=== PATIENT | male | born 1985 | race Hispanic/Latino ===

== ENCOUNTER 2021-08-04 17:38 | Inpatient (IN) | payer OTHER, SELFPAY ==
[2021-08-04] VITALS (12 sets, daily range): BP systolic 91–106; BP diastolic 49–66; PULSE 45–64; RESP 10–24; TEMP 36.3–36.5; O2SAT 96–100; BMI 16.2
[2021-08-04] MEDS: POTASSIUM CHLORIDE 20 MEQ/15 ML UDC 40 MEQ PO (18:19)
[2021-08-04] MEDS: POTASSIUM CHLORIDE IN WATER 10 MEQ/100 ML PIGGYBACK 100 MEQ IV ×2 (18:19→19:31)
[2021-08-04 18:24] LABS: Alanine Aminotransferase 31 IU/L (<50); Albumin 4.6 g/dL (3.5-5.0); Albumin Globulin Ratio 1.5 (1.0-2.8); Alkaline Phosphatase 68 U/L (38-126); Aspartate Aminotransferase 57 IU/L (17-59); BUN Creatinine Ratio 35.4 (6-22); Bilirubin Total 1.2 mg/dL (0.2-1.3); Blood Urea Nitrogen 28 mg/dL (9-20); Calcium 8.9 mg/dL (8.4-10.2); Estimated Glomerular Filt Rate > 60 mL/min (>60); Globulin 3.1 g/dL (1.7-4.1); Glucose 87 mg/dL (70-100); Magnesium 2.3 mg/dL (1.6-2.3); Sodium 129 mmol/L (137-145); Total Protein 7.7 g/dL (6.3-8.2)
[2021-08-04 18:31] LABS: HEMOLYSIS 20 (0-50)
--- NOTE | 2021-08-04 18:43 | ED.RECABL ---
HPI - Recheck/Abnormal Lab/Rx General Chief Complaint: Recheck/Abnormal Lab/Rx Stated Complaint: low potassium, sent PCP Time Seen by Provider: 08/04/21 17:50 Source: patient Mode of arrival: Ambulatory History of Present Illness HPI narrative: 36-year-old male nonsmoker and previously healthy presents at the request of his primary care provider due to critically low potassium that was found to be below 2 on routine blood work. Patient states that he feels completely fine and has no symptoms. He denies dizziness, weakness or lightheadedness. He has no chest pain or shortness of breath. He denies any muscle cramps or excessive fatigue. He denies any prescription medications or dietary change. He takes only multivitamins. He states that he is been told in the past that his potassium was quite low and admits that people seem to get ?excited about his levels on occasion. He has had no nausea or vomiting. He denies diarrhea Related Data Home Medications Medication Instructions Recorded Confirmed No Known Home Medications 08/05/21 08/05/21 Allergies Allergy/AdvReac Type Severity Reaction Status Date / Time No Known Drug Allergies Allergy Verified 08/04/21 17:55 Review of Systems Review of Systems Narrative: GENERAL: Denies chills, fatigue, malaise, fever, sweats. HEENT: Denies sinus pain, ear pain, sore throat, difficulty swallowing, dizziness. RESPIRATORY: Denies dyspnea, cough, wheezing, hemoptysis, sputum. CARDIOVASCULAR: Denies chest pain, palpitations, orthopnea, edema, GASTROINTESTINAL: Denies nausea, vomiting, abdominal pain, diarrhea, constipation, melena. : Denies dysuria, frequency, incontinence, hematuria, urinary retention. MUSCULOSKELETAL: denies weakness, joint pain, or bony pain SKIN: Denies rash, skin lesions, or other NEUROLOGIC: Denies weakness, headache, numbness, change in speech, confusion, seizures, incoordination. PSYCHIATRIC: No concerning psychosocial issues. 12 point review of systems is negative except for those stated above Patient History Surgical History History of inguinal hernia repair, bilateral Family History Father Hypertension Mother Autoimmune disorder Social History household members: none Smoking Status: Never smoker alcohol intake: never Exam Narrative Exam Narrative: GENERAL: [] year old patient appears stated age. Thin, in no obvious distress HEAD: Atraumatic. Normocephalic. EYES: Pupils equal round and reactive. Extraocular motions intact. No scleral icterus. No injection or drainage. ENT: Nose without bleeding, purulent drainage. Throat without erythema, tonsillar hypertrophy or exudate. Airway patent. NECK: Trachea midline. Non tender CARDIOVASCULAR: Regular rate and rhythm without murmurs, gallops, or rubs. RESPIRATORY: Clear to auscultation. Breath sounds equal bilaterally. No wheezes, rales, or rhonchi. GASTROINTESTINAL: Abdomen soft, non-tender, nondistended. EXTREMITIES: No edema or joint tenderness. BACK: Nontender without deformity or crepitance. No flank tenderness. NEURO: AOx3. SKIN: No rash or erythema of visible areas Initial Vital Signs Initial Vital Signs: Vital Signs Temperature 97.7 F 08/04/21 17:50 Pulse Rate 52 L 08/04/21 17:50 Respiratory Rate 18 08/04/21 17:50 Blood Pressure 98/66 08/04/21 17:50 Pulse Oximetry 98 08/04/21 17:50 Course Orders Ordered: Acetaminophen (Acetaminophen 325 Mg Tablet) 650 mg PO Q6HR PRN PRN Reason: Fever/Mild Pain (1-3) Enoxaparin Sodium (Enoxaparin 40 Mg/0.4 Ml Syringe) 40 mg SUBCUT DAILY [facility] Last Admin: 08/05/21 08:47 Dose: 40 mg Documented by: EAN Potassium Chloride/Sodium Chloride (Ns With Kcl 20 Meq) 1,000 mls @ 100 mls/hr IV CONT [facility] Last Admin: 08/05/21 13:00 Dose: 100 mls/hr Documented by: EAN Magnesium Oxide (Magnesium Oxide 400 Mg Tablet) 400 mg PO BID [facility] Last Admin: 08/05/21 13:00 Dose: 400 mg Documented by: EAN Naloxone HCl (Naloxone 0.4 Mg/Ml Vial) 0.2 mg IV Q2MIN PRN PRN Reason: Opiate Reversal Ondansetron HCl (Ondansetron 4 Mg/2 Ml Inj) 4 mg IV Q8HR PRN PRN Reason: Nausea And Vomiting Potassium Chloride (Potassium Chloride 20 Meq Tab) 40 meq PO Q4H [facility] Stop: 08/06/21 00:31 Last Admin: 08/05/21 15:44 Dose: 40 meq Documented by: Admin: 08/05/21 13:00 Dose: 40 meq Documented by: EAN Discontinued Medications POTASSIUM CHLORIDE IN WATER (Potassium Cl 10 Meq/100 Ml Rebecca) 10 meq in 100 mls @ 100 mls/hr IV Q1H [facility] Stop: 08/04/21 22:14 Last Admin: 08/04/21 23:06 Dose: 75 mls/hr Documented by: Infusion: 08/04/21 22:15 Dose: 75 mls/hr Documented by: Infusion: 08/04/21 21:45 Dose: 75 mls/hr Documented by: Admin: 08/04/21 20:55 Dose: 75 mls/hr Documented by: Infusion: 08/04/21 20:54 Dose: 0 mls/hr Documented by: Admin: 08/04/21 19:31 Dose: 100 mls/hr Documented by: Infusion: 08/04/21 19:19 Dose: 100 mls/hr Documented by: Admin: 08/04/21 18:19 Dose: 100 mls/hr Documented by: GERARD Sodium Chloride (Normal Saline 0.9%) 1,000 mls @ 100 mls/hr IV CONT [facility] Last Admin: 08/04/21 23:06 Dose: 100 mls/hr Documented by: CEDRIC POTASSIUM CHLORIDE IN WATER (Potassium Cl 10 Meq/100 Ml Rebecca) 10 meq in 100 mls @ 100 mls/hr IV Q1H [facility] Stop: 08/05/21 09:29 Last Admin: 08/05/21 10:25 Dose: 75 mls/hr Documented by: Infusion: 08/05/21 10:25 Dose: 75 mls/hr Documented by: Admin: 08/05/21 08:56 Dose: 75 mls/hr Documented by: Infusion: 08/05/21 08:56 Dose: 75 mls/hr Documented by: Admin: 08/05/21 08:47 Dose: 75 mls/hr Documented by: Infusion: 08/05/21 08:45 Dose: 75 mls/hr Documented by: Admin: 08/05/21 07:04 Dose: 100 mls/hr Documented by: Infusion: 08/05/21 06:19 Dose: 100 mls/hr Documented by: Admin: 08/05/21 05:19 Dose: 100 mls/hr Documented by: Infusion: 08/05/21 04:26 Dose: 100 mls/hr Documented by: Admin: 08/05/21 03:26 Dose: 100 mls/hr Documented by: CEDRIC Calcium Gluconate 4.65 meq/ (Sodium Chloride) 60 mls @ 180 mls/hr IV NOW ONE Stop: 08/05/21 14:34 Last Admin: 08/05/21 15:59 Dose: 180 mls/hr Documented by: EAN Potassium Chloride (Potassium Chloride 20 Meq/15 Ml Udc) 40 meq PO NOW ONE Stop: 08/04/21 18:07 Last Admin: 08/04/21 18:19 Dose: 40 meq Documented by: GERARD Potassium Chloride (Potassium Chloride 20 Meq Tab) 40 meq PO NOW ONE Stop: 08/05/21 03:18 Last Admin: 08/05/21 03:34 Dose: 40 meq Documented by: CEDRIC Vital Signs Vital signs: Vital Signs - 8 hr 08/04/21 17:50 Temperature 97.7 F Pulse Rate 52 L Respiratory Rate 18 Blood Pressure 98/66 Pulse Oximetry 98 MDM - Recheck/Abnormal Lab/Rx Lab Data Result diagrams: 08/05/21 10:45 08/05/21 10:45 Labs: Lab Results 08/04/21 08/04/21 08/04/21 Range/Units 17:55 17:55 17:55 WBC 2.7 L (4.5-11.0) X10^3/uL RBC 3.82 L (4.5-5.9) X10^6/uL Hgb 13.0 L (13.5-17.5) g/dL Hct 35.1 L (41-53) % MCV 91.9 (80-100) fL MCH 34.1 H (26-34) PG MCHC 37.1 H (30-36) % RDW 13.2 (11.6-14.8) % Plt Count 188 (150-400) X10^3/uL Neut % (Auto) 42.1 L (50-75) % Lymph % (Auto) 43.2 H (25-40) % Kaufman % (Auto) 13.1 (3-14) % Eos % (Auto) 0.5 L (2-4) % Baso % (Auto) 1.1 (0-2) % Neut # (Auto) 1100 L (3588-7085) /uL Lymph # (Auto) 1200 (3206-3787) /uL Kaufman # (Auto) 400 (0-900) /uL Eos # (Auto) 0 (0-450) /uL Baso # (Auto) 0 (0-100) /uL Sodium 129 L (137-145) mmol/L Potassium 1.8 L* (3.4-5.1) mmol/L Chloride 66 L* (98-107) mmol/L Carbon Dioxide 57 H* (22-32) mmol/L BUN 28 H (9-20) mg/dL Creatinine 0.79 (0.66-1.25) mg/dL Estimated GFR > 60 (>60) mL/min BUN/Creatinine Ratio 35.4 H (6-22) Glucose 87 (70-100) mg/dL Calcium 8.9 (8.4-10.2) mg/dL Magnesium 2.3 (1.6-2.3) mg/dL Total Bilirubin 1.2 (0.2-1.3) mg/dL AST 57 (17-59) IU/L ALT 31 (<50) IU/L Alkaline Phosphatase 68 (38-126) U/L Total Protein 7.7 (6.3-8.2) g/dL Albumin 4.6 (3.5-5.0) g/dL Globulin 3.1 (1.7-4.1) g/dL Albumin/Globulin Ratio 1.5 (1.0-2.8) SARS-CoV-2 (PCR) (Negative) 08/04/21 Range/Units 20:10 WBC (4.5-11.0) X10^3/uL RBC (4.5-5.9) X10^6/uL Hgb (13.5-17.5) g/dL Hct (41-53) % MCV (80-100) fL MCH (26-34) PG MCHC (30-36) % RDW (11.6-14.8) % Plt Count (150-400) X10^3/uL Neut % (Auto) (50-75) % Lymph % (Auto) (25-40) % Kaufman % (Auto) (3-14) % Eos % (Auto) (2-4) % Baso % (Auto) (0-2) % Neut # (Auto) (7175-9780) /uL Lymph # (Auto) (3444-7532) /uL Kaufman # (Auto) (0-900) /uL Eos # (Auto) (0-450) /uL Baso # (Auto) (0-100) /uL Sodium (137-145) mmol/L Potassium (3.4-5.1) mmol/L Chloride (98-107) mmol/L Carbon Dioxide (22-32) mmol/L BUN (9-20) mg/dL Creatinine (0.66-1.25) mg/dL Estimated GFR (>60) mL/min BUN/Creatinine Ratio (6-22) Glucose (70-100) mg/dL Calcium (8.4-10.2) mg/dL Magnesium (1.6-2.3) mg/dL Total Bilirubin (0.2-1.3) mg/dL AST (17-59) IU/L ALT (<50) IU/L Alkaline Phosphatase (38-126) U/L Total Protein (6.3-8.2) g/dL Albumin (3.5-5.0) g/dL Globulin (1.7-4.1) g/dL Albumin/Globulin Ratio (1.0-2.8) SARS-CoV-2 (PCR) Negative (Negative) Discharge Plan Departure Patient Disposition: Admitted As Inpatient Clinical Impression: Acute hypokalemia Admit Date/Time: 08/04/21 20:54 Admit Provider: Maliha Stewart
[2021-08-04 18:45] LABS: Potassium 1.8 mmol/L (3.4-5.1)
[2021-08-04 18:46] LABS: Carbon Dioxide 57 mmol/L (22-32); Chloride 66 mmol/L (98-107)
[2021-08-04 19:18] LABS: Add Manual Diff / Slide Review NO; Basophils Absolute Auto 0 /uL (0-100); Basophils Percent Auto 1.1 % (0-2); Eosinophils Absolute Auto 0 /uL (0-450); Eosinophils Percent Auto 0.5 % (2-4); Lymphocytes Absolute Auto 1200 /uL (1100-4500); Lymphocytes Percent Auto 43.2 % (25-40); Mean Corpuscular HGB Conc 37.1 % (30-36); Mean Corpuscular Hemoglobin 34.1 PG (26-34); Mean Corpuscular Volume 91.9 fL (80-100); Monocytes Absolute Auto 400 /uL (0-900); Monocytes Percent Auto 13.1 % (3-14); Neutrophils Absolute Auto 1100 /uL (1500-7000); Neutrophils Percent Auto 42.1 % (50-75); Platelet Count 188 X10^3/uL (150-400); Red Blood Cell Count 3.82 X10^6/uL (4.5-5.9); Red Cell Distribution Width 13.2 % (11.6-14.8); White Blood Cell Count 2.7 X10^3/uL (4.5-11.0)
[2021-08-04 19:19] LABS: Hematocrit 35.1 % (41-53)
--- NOTE | 2021-08-04 20:45 | PC.NURSE ---
Pt given a snack with ok from Dr Rivera
[2021-08-04 20:50] LABS: COVID19 -Nasal RAPID Negative (Negative)
[2021-08-04] MEDS: POTASSIUM CHLORIDE IN WATER 10 MEQ/100 ML PIGGYBACK 75 MEQ IV ×2 (20:55→23:06)
--- NOTE | 2021-08-04 22:58 | PM.HP.1 ---
History of Present Illness History of Present Illness Date Patient Seen: 08/04/21 Time Patient Seen: 22:00 Chief complaint: low potassium, sent by [facility] PCP Narrative: Pedro Mora is 36-year-old no with no medical history and currently not taking any medications presented at the request of his PCP at the [facility] due to a low potassium 1.8. He otherwise feels fine and was surprised that he needed to be admitted. He states he has been working with a intake man to help him gain weight. His whole family is thin. Patient states he is very picky about foods and does take a ?ghost? protein shake. He also takes a multivitamin. He states that his work is quite busy any generally only eats 1 meal a day. 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 Denies fever, sweats or chills, chest pain, nausea vomiting, abdominal pain, dysuria, diarrhea constipation, paresthesias of the upper lower extremities. Per the emergency room provider his potassium at the [facility] was 1.7 and upon presentation to this facility it was 1.8. He was initiated on 40 mEq use of potassium IV and p.o. totaling 80 mEq use. Patient is afebrile, blood pressure 106/49, heart rate of 59, respiratory rate 16, oxygen saturation of 100% on room air he weighs 54.4 kg, calculated BMI is 18.2. Is mildly anemic with a hemoglobin and hematocrit of 13 and 35.1, sodium was 129 potassium 1.8 chloride 66 bicarb 57 creatinine 0.79 BUN 28 EGFR is within normal limits glucose 87 calcium within normal limits, and liver enzymes within normal limits, COVID-19 PCR is negative. 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 [place] Tobacco & Substance use: Denies smoking or alcohol use denies marijuana or otherwise drug use Meds Home Medications and Allergies Allergies Allergy/AdvReac Type Severity Reaction Status Date / Time No Known Drug Allergies Allergy Verified 08/04/21 17:55 Review of Systems Review of Systems ROS: Yes All systems reviewed with the patient and are negative except as otherwise documented Exam Vital Signs (past 8 hours): - 08/04/21 17:50 08/04/21 18:04 08/04/21 18:22 Temperature 97.7 F Pulse Rate 52 L 47 L 52 L Respiratory Rate 18 12 17 Blood Pressure 98/66 97/62 Pulse Oximetry 98 99 100 08/04/21 18:30 08/04/21 19:00 08/04/21 19:30 Temperature Pulse Rate 50 L 50 L 62 Respiratory Rate 24 10 L 18 Blood Pressure Pulse Oximetry 99 100 96 08/04/21 19:41 08/04/21 20:00 08/04/21 20:30 Temperature Pulse Rate 64 46 L 45 L Respiratory Rate 24 12 12 Blood Pressure 105/55 L 99/60 95/62 Pulse Oximetry 99 100 100 08/04/21 21:00 08/04/21 21:30 08/04/21 22:02 Temperature 97.3 F L Pulse Rate 48 L 49 L 59 L Respiratory Rate 14 12 16 Blood Pressure 97/60 91/61 106/49 L Pulse Oximetry 100 100 100 Oxygen Delivery Method Room Air Oxygen Flow Rate 0 Narrative Exam Narrative: Gen: Alert, oriented, very thin 36 y.o. male, pale HEENT: normocephalic, atraumatic, conjunctiva clear, sclera non-icteric, oral mucosa pink and moist Neck: supple, full ROM, no JVD, trachea is midline Resp: Lungs CTA, non-labored breathing CV: RRR, no murmur or rubs Abd: soft, non-tender, normoactive BTs Skin: no lesions or rashes, dry and intact Neuro: Alert and oriented X 4 w/no focal deficits. Speech clear and coherent. Extremities: minimal muscle mass, moves all 4 extremities, is ambulatory, negative Lopez?s sign Psyche: normal mood and affect. Objective Labs Result Diagrams: 08/04/21 17:55 08/04/21 17:55 Labs: Laboratory Results - last 24 hr 08/04/21 08/04/21 08/04/21 17:55 17:55 17:55 WBC 2.7 L RBC 3.82 L Hgb 13.0 L Hct 35.1 L MCV 91.9 MCH 34.1 H MCHC 37.1 H RDW 13.2 Plt Count 188 Neut % (Auto) 42.1 L Lymph % (Auto) 43.2 H Johnson % (Auto) 13.1 Eos % (Auto) 0.5 L Baso % (Auto) 1.1 Neut # (Auto) 1100 L Lymph # (Auto) 1200 Johnson # (Auto) 400 Eos # (Auto) 0 Baso # (Auto) 0 Sodium 129 L Potassium 1.8 L* Chloride 66 L* Carbon Dioxide 57 H* BUN 28 H Creatinine 0.79 Estimated GFR > 60 BUN/Creatinine Ratio 35.4 H Glucose 87 Calcium 8.9 Magnesium 2.3 Total Bilirubin 1.2 AST 57 ALT 31 Alkaline Phosphatase 68 Total Protein 7.7 Albumin 4.6 Globulin 3.1 Albumin/Globulin Ratio 1.5 SARS-CoV-2 (PCR) 08/04/21 20:10 WBC RBC Hgb Hct MCV MCH MCHC RDW Plt Count Neut % (Auto) Lymph % (Auto) Johnson % (Auto) Eos % (Auto) Baso % (Auto) Neut # (Auto) Lymph # (Auto) Johnson # (Auto) Eos # (Auto) Baso # (Auto) Sodium Potassium Chloride Carbon Dioxide BUN Creatinine Estimated GFR BUN/Creatinine Ratio Glucose Calcium Magnesium Total Bilirubin AST ALT Alkaline Phosphatase Total Protein Albumin Globulin Albumin/Globulin Ratio SARS-CoV-2 (PCR) Negative Assessment & Plan Assessment & Plan narrative: Bridgett Mora is a 36-year-old male admitted for electrolyte abnormalities. 1. Acute severe hypokalemia, present on admission Admission potassium was 1.8 He was administered 40 mEq KCL riders and 40 mEq oral potassium in the ED BMP and magnesium q.4 hours Telemetry 2. Hyponatremia, present on admission Initial sodium was 129 Normal saline at 100 mL/hour goal of 10 millimoles sodium overnight VTE Prophylaxis: Wells risk score 0 X Enoxaparin 40 mg subQ once daily Bilateral SCDs Patient is admitted to the medical floor due to frequent monitoring and lab draws until his electrolytes are stabilized. FEN: IV fluids: Normal saline at 100 mL/hour diet: General diet, labs: CBC, C/BMP, liver enzymes, [employer] None Dispo: Presumed discharge to home Code status: Full code as discussed with the patient. [X] I have utilized all available immediate resources to obtain, update, or review of the patient's current medications COVID-19 COVID-19 status: Negative Result date/Date tested (Pos, Neg/Pending): 08/04/21 Quality VTE Deep Vein Thrombosis/Pulmonary Embolism Present on Admission: No MIPS - Admit I confirm the patient?s Advance Care Plan is present, Code status is documented, Surrogate decision maker is in patient?s record [If Yes, STOP here]: Yes MIPS - DC The patient has current or prior documentation of left ventricular ejection fraction (LVEF) less than 40%, or moderate or severely depressed left ventricular systolic function.: No
[2021-08-04] MEDS: SODIUM CHLORIDE 0.9% 1,000 ML 100 ML IV (23:06)
[2021-08-04 23:12] LABS: BUN Creatinine Ratio 29.9 (6-22); Blood Urea Nitrogen 20 mg/dL (9-20); Calcium 8.5 mg/dL (8.4-10.2); Estimated Glomerular Filt Rate > 60 mL/min (>60); Glucose 101 mg/dL (70-100); HEMOLYSIS < 15 (0-50); Sodium 133 mmol/L (137-145)
[2021-08-04 23:24] LABS: Potassium 2.5 mmol/L (3.4-5.1)
[2021-08-04 23:25] LABS: Carbon Dioxide 51 mmol/L (22-32); Chloride 74 mmol/L (98-107)
[2021-08-04 23:26] LABS: Magnesium 2.4 mg/dL (1.6-2.3)
[2021-08-05 02:15] LABS: Basophils Absolute Auto 0 /uL (0-100); Basophils Percent Auto 0.3 % (0-2); Eosinophils Absolute Auto 0 /uL (0-450); Eosinophils Percent Auto 0.8 % (2-4); Hematocrit 34.1 % (41-53); Hemoglobin 12.5 g/dL (13.5-17.5); Lymphocytes Absolute Auto 1300 /uL (1100-4500); Lymphocytes Percent Auto 43.2 % (25-40); Mean Corpuscular Hemoglobin 34.2 PG (26-34); Mean Corpuscular Volume 93.1 fL (80-100); Monocytes Absolute Auto 300 /uL (0-900); Monocytes Percent Auto 10.9 % (3-14); Neutrophils Absolute Auto 1300 /uL (1500-7000); Neutrophils Percent Auto 44.8 % (50-75); Platelet Count 184 X10^3/uL (150-400); Red Blood Cell Count 3.67 X10^6/uL (4.5-5.9)
[2021-08-05 02:26] LABS: BUN Creatinine Ratio 30.2 (6-22); Blood Urea Nitrogen 19 mg/dL (9-20); Calcium 8.4 mg/dL (8.4-10.2); Estimated Glomerular Filt Rate > 60 mL/min (>60); Glucose 88 mg/dL (70-100); HEMOLYSIS < 15 (0-50); Sodium 132 mmol/L (137-145)
[2021-08-05 02:37] LABS: Magnesium 2.5 mg/dL (1.6-2.3)
[2021-08-05 02:43] LABS: Add Manual Diff / Slide Review SLIDE REVIEW
[2021-08-05 02:44] LABS: Mean Corpuscular HGB Conc 36.7 % (30-36)
[2021-08-05 02:46] LABS: Hematocrit 32.3 % (41-53); Hemoglobin 11.9 g/dL (13.5-17.5); Mean Corpuscular Hemoglobin 34.4 PG (26-34); Mean Corpuscular Volume 93.9 fL (80-100); Red Blood Cell Count 3.44 X10^6/uL (4.5-5.9); White Blood Cell Count 3.2 X10^3/uL (4.5-11.0)
[2021-08-05 02:47] LABS: Basophils Percent Auto 1.4 % (0-2); Eosinophils Percent Auto 0.9 % (2-4); Lymphocytes Absolute Auto 1300 /uL (1100-4500); Lymphocytes Percent Auto 41.2 % (25-40); Mean Corpuscular HGB Conc 36.7 % (30-36); Monocytes Absolute Auto 300 /uL (0-900); Monocytes Percent Auto 10.7 % (3-14); Neutrophils Absolute Auto 1400 /uL (1500-7000); Neutrophils Percent Auto 45.8 % (50-75); Platelet Count 166 X10^3/uL (150-400); Red Cell Distribution Width 12.9 % (11.6-14.8)
[2021-08-05 02:48] LABS: Add Manual Diff / Slide Review SLIDE REVIEW
[2021-08-05 03:00] LABS: Potassium 2.1 mmol/L (3.4-5.1)
[2021-08-05 03:01] LABS: Carbon Dioxide 51 mmol/L (22-32); Chloride 76 mmol/L (98-107)
[2021-08-05] MEDS: POTASSIUM CHLORIDE IN WATER 10 MEQ/100 ML PIGGYBACK 100 MEQ IV ×3 (03:26→07:04)
[2021-08-05] MEDS: POTASSIUM CHLORIDE 20 MEQ TAB 40 MEQ PO ×4 (03:34→21:21)
--- NOTE | 2021-08-05 04:36 | PC.NURSE ---
Admit/NOC Shift Note- Patient arrived to room via stretcher from ER at 2145. Patient pleasent, calm, and cooperative with care. Admit questions done, medications reviewed, physical assessment done, and skin check completed. No Complaints of pain or discomfort. No complaints of N/V. Patient oriented to bed and bed controls, room, lights, phone, bathroom, menu, and callbell/tv remote. Patient steady on feet with normal gait, allowed patient to be independent. Safety measures in place. Call roe and phone within reach. Will continue to monitor.
[2021-08-05 04:56] LABS: Appearance Urine UA CLEAR; Bilirubin Urine UA NEGATIVE (NEGATIVE); Color Urine UA YELLOW; Glucose Urine UA NEGATIVE (Negative); Ketones Urine UA NEGATIVE (NEGATIVE); Leukocyte Esterase Urine UA NEGATIVE (NEGATIVE); Nitrite Urine UA NEGATIVE (Negative); Occult Blood Urine UA 1+ (Negative); Protein Urine UA NEGATIVE (Negative); Specific Gravity Urine UA <=1.005 (1.000-1.035); pH Urine UA 7.5 (4.5-8.0)
[2021-08-05 05:00] LABS: Ur Creatinine 20 (Normal); Ur Specific Gravity <1.005 (Normal); Urine pH 7.5 (Normal)
[2021-08-05 05:01] LABS: UR Morphine/Opiate cutoff 300 Negative (Negative); Urine Amphetamines Negative (Negative); Urine Barbiturates Negative (Negative); Urine Benzodiazepines Negative (Negative); Urine Cocaine Negative (Negative); Urine MDMA Negative (Negative); Urine Methadone Negative (Negative); Urine Methamphetamines Negative (Negative); Urine Oxycodone Negative (Negative); Urine Phencyclidine Negative (Negative); Urine Tetrahydrocannabinol Negative (Negative); Urine Tricyclic Antidepressant Negative (Negative)
[2021-08-05 05:23] LABS: Sodium Urine Random 14 mmol/L (30-90)
[2021-08-05 06:38] LABS: Bacteria Urine Occasional (0-1); Culture Indicated Urine Cult Not Indicated; RBC Urine 5-10/HPF (0-5/HPF); Squamous Epithelial Cell Urine 0-1 /HPF (0-5/HPF); WBC Urine 0-1/HPF (0-5/HPF)
[2021-08-05 06:42] LABS: BUN Creatinine Ratio 35.1 (6-22); Blood Urea Nitrogen 20 mg/dL (9-20); Calcium 7.7 mg/dL (8.4-10.2); Chloride 79 mmol/L (98-107); Estimated Glomerular Filt Rate > 60 mL/min (>60); Glucose 106 mg/dL (70-100); HEMOLYSIS < 15 (0-50); Magnesium 2.2 mg/dL (1.6-2.3); Sodium 131 mmol/L (137-145)
[2021-08-05 06:47] LABS: Anisocytosis 1+
[2021-08-05 06:48] LABS: Anisocytosis 1+
[2021-08-05 06:51] LABS: Basophils Absolute Auto 100 /uL (0-100); Basophils Percent Auto 1.8 % (0-2); Eosinophils Absolute Auto 100 /uL (0-450); Eosinophils Percent Auto 1.7 % (2-4); Hematocrit 29.9 % (41-53); Hemoglobin 11.1 g/dL (13.5-17.5); Lymphocytes Absolute Auto 1400 /uL (1100-4500); Lymphocytes Percent Auto 45.1 % (25-40); Mean Corpuscular HGB Conc 37.1 % (30-36); Mean Corpuscular Hemoglobin 34.6 PG (26-34); Mean Corpuscular Volume 93.2 fL (80-100); Monocytes Absolute Auto 400 /uL (0-900); Monocytes Percent Auto 11.8 % (3-14); Neutrophils Absolute Auto 1200 /uL (1500-7000); Neutrophils Percent Auto 39.6 % (50-75); Platelet Count 154 X10^3/uL (150-400)
[2021-08-05 06:53] LABS: Carbon Dioxide 45 mmol/L (22-32); Potassium 2.6 mmol/L (3.4-5.1)
[2021-08-05 07:00] VITALS: BP 92/56; PULSE 50; RESP 17; TEMP 36.6; O2SAT 100
[2021-08-05 07:36] LABS: Add Manual Diff / Slide Review SLIDE REVIEW
[2021-08-05 07:37] LABS: Anisocytosis 1+
[2021-08-05 08:00] VITALS: O2SAT 98
[2021-08-05 08:36] VITALS: PULSE 50; RESP 16; O2SAT 100
[2021-08-05] MEDS: POTASSIUM CHLORIDE IN WATER 10 MEQ/100 ML PIGGYBACK 75 MEQ IV ×3 (08:47→10:25)
[2021-08-05] MEDS: ENOXAPARIN 40 MG/0.4 ML SYRINGE SUBCUT (08:47)
--- NOTE | 2021-08-05 08:53 | CM.DANOTE ---
DCP: Payor: Dianna Lau PCP: [facility] Pt is a 36 y/o M admitted with a low potassium of 1.8 and for IV K+ management. Pt also having hyponatremia and is on IV fluids. Pt states that he is working with a etched circuit processor to help him gain weight. Pt works on the [employer] and states that it is difficult to eat during the day due to the high demanding job. Currently, his potassium has gone up to 2.6. Pt having labs monitored and will be on the floor until electrolyes are stabilized. DCP met with patient bedside this AM. Pt was up in bed watching movies on his laptop and eating oatmeal. Pt states that he does not have family here due to being in the [place]. Pt wanting to know when he will be discharged as he is concerned because he states that his job is calling to ask when he will be back. DCP verbalized the importance of getting his electrolytes WNL and to monitor him for any adverse effects due to the electrolyte imbalance. Pt inquiring about oral supplements. DCP verbalized that once the provider is able to provide any updates that she would let him know. Pt verbalized understanding. Pt has no needs identified at this time. DCP to continue to follow P: Pt to continue on IV electrolyte replacements. Pt to continue on normal diet. No needs identified at this time. DCP to continue to follow. Kami Lei RN/PATRICIA Discharge Planning/Care Management Advanced directive, confirm from FAMILY Start: 08/05/21 00:01 Freq: Q24H Status: Active Protocol: Document 08/05/21 00:01 AGW (Rec: 08/05/21 01:47 AGW [id number]) Advance Directive, confirm on record Time 23:30 Person contacted patient Copy received No CM Discharge Assessment Start: 08/05/21 08:52 Freq: Status: Active Protocol: Document 08/05/21 08:52 AJ (Rec: 08/05/21 08:53 AJ [id number]) Discharge Planning Assessment Assigned Cyber Forensic Specialist Kami Lei RN/PATRICIA Advance Directives? No Advance Directives on File No History Provided By Patient Prior Living Arrangements Apartment/Condo Household Members none Comment Pt here under orders Type of transporation used prior to Drives own vehicle admit Independent with ADL's Yes Is patient alert and oriented? Yes Caregiver for Another No Barriers to Discharge No Referrals Initiated None needed Additional Comment At this time Whiteboard Updated in Patient Room with Yes name and ext. # of Cyber Forensic Specialist Comment DCP instructed pt to call with any concerns Review Status In Process Please Provide Date Initial DC 08/05/21 Assessment Was Performed Next Review Type Continued Stay Review
[2021-08-05 10:52] VITALS: BP 101/54; PULSE 55; RESP 18; TEMP 36.3; O2SAT 98
[2021-08-05 10:54] LABS: Basophils Absolute Auto 100 /uL (0-100); Basophils Percent Auto 3.1 % (0-2); Eosinophils Absolute Auto 0 /uL (0-450); Eosinophils Percent Auto 1.7 % (2-4); Hematocrit 29.2 % (41-53); Lymphocytes Absolute Auto 1100 /uL (1100-4500); Lymphocytes Percent Auto 39.7 % (25-40); Mean Corpuscular HGB Conc 37.7 % (30-36); Mean Corpuscular Hemoglobin 34.9 PG (26-34); Mean Corpuscular Volume 92.6 fL (80-100); Monocytes Absolute Auto 300 /uL (0-900); Monocytes Percent Auto 10.1 % (3-14); Neutrophils Absolute Auto 1300 /uL (1500-7000); Neutrophils Percent Auto 45.4 % (50-75); Platelet Count 146 X10^3/uL (150-400); Red Blood Cell Count 3.15 X10^6/uL (4.5-5.9); Red Cell Distribution Width 12.7 % (11.6-14.8); White Blood Cell Count 2.8 X10^3/uL (4.5-11.0)
[2021-08-05 10:58] LABS: Add Manual Diff / Slide Review SLIDE REVIEW
[2021-08-05 11:04] LABS: BUN Creatinine Ratio 28.3 (6-22); Blood Urea Nitrogen 17 mg/dL (9-20); Calcium 7.7 mg/dL (8.4-10.2); Chloride 82 mmol/L (98-107); Estimated Glomerular Filt Rate > 60 mL/min (>60); Glucose 163 mg/dL (70-100); HEMOLYSIS < 15 (0-50); Sodium 129 mmol/L (137-145)
[2021-08-05 11:13] LABS: Potassium 2.3 mmol/L (3.4-5.1)
[2021-08-05 11:14] LABS: Carbon Dioxide 42 mmol/L (22-32)
[2021-08-05 11:25] LABS: Anisocytosis 1+
--- NOTE | 2021-08-05 12:09 | DIET.CONS ---
Dietary Consultation Note Admission Date: 08/04/2021 20:54 Assessment: 36y M admitted from [place] PCP for hypkalemia referred to nutrition for low body weight (BMI 16.3) Pt reports genetic thinness and [place] c food issues. Pt reports high stress levels c his job causing him to have reduced appetite as result. Complicating matters, pt is very picky eater and has significant fears around eating in front of others. 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 Pt and RD have agreement he can workout with caution as pt feels his appetite is improved when participating in physical activity. Pt reports being asymptomatic and feeling really good the past few days. Pt denies recent emesis or diarrhea, though pt reports some diarrhea after admit once given IVF, he wonders if this is why K+ dropped after first repletion. Pt dislikes most high K+ foods, interested in supplementing if necessary, dislikes bananas, coconut, potatoes, does like tomatoes. Pt reports eating one good meal daily, otherwise has snacks of apple or Quest bar as pt can eat these discretely and quickly without other people getting in his business. Pt desires weight gain and increased muscle mass, expresses understanding of tank terminal gauger dangers of low body weight. Pt using Ghost whey protein mixed c 2% milk after workouts. Pt ordered hummus x2 with cucumbers and iced tea c splenda for lunch. Pt very concerned about food ingredients when ordering meals. 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 Interventions: 1. 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 2. Educated pt on potassium content of foods, options to support K+ levels and strategies in cases of emesis or diarrhea. Pt would prefer to supplement c K+ and eat tomatoes on regular basis. 3. Educated pt on high risk for osteoporosis with low body weight, importance of supporting nutrition status and consuming calcium, vit D and vit K for bone health. Electronically Signed by: Katherine Morales 08/05/21 12:09 Clinical Dietitian [address] [address]
[2021-08-05] MEDS: KCL 20 MEQ IN NS 1,000 ML 100 MEQ IV ×2 (13:00→23:04)
[2021-08-05] MEDS: MAGNESIUM OXIDE 400 MG TABLET PO ×2 (13:00→21:21)
[2021-08-05 13:51] LABS: Magnesium 2.1 mg/dL (1.6-2.3)
[2021-08-05 15:00] VITALS: BP 94/65; PULSE 52; RESP 18; TEMP 35.9; O2SAT 100
[2021-08-05] MEDS: CALCIUM GLUCONATE 4.65 MEQ in SODIUM CHLORIDE 0.9% 50 ML 180 MEQ IV (15:59)
--- NOTE | 2021-08-05 16:14 | PC.NURSE ---
Pt up ad wesley in room w/o incidence. Lungs clear, SpO2 98% RA Pt continues to get KCL, Mg po and Mickey. gluconate for labs. Denies any discomfort. Pt had shower this am Last K+ 2.3 Call light w/in reach, pt calls appropriately for needs. Continue w/plan of care
[2021-08-05 18:41] LABS: BUN Creatinine Ratio 22.8 (6-22); Blood Urea Nitrogen 13 mg/dL (9-20); Chloride 86 mmol/L (98-107); Estimated Glomerular Filt Rate > 60 mL/min (>60); Glucose 91 mg/dL (70-100); HEMOLYSIS < 15 (0-50); Sodium 133 mmol/L (137-145)
[2021-08-05 18:48] LABS: Carbon Dioxide 39 mmol/L (22-32)
[2021-08-05 18:58] LABS: Potassium 2.5 mmol/L (3.4-5.1)
[2021-08-05 19:57] VITALS: BP 94/59; PULSE 51; RESP 18; TEMP 36.6; O2SAT 97
[2021-08-05 20:14] LABS: Magnesium 2.3 mg/dL (1.6-2.3)
--- NOTE | 2021-08-05 20:17 | PM.PN.1 ---
Subjective Subjective Date Patient Seen: 08/05/21 Interval history: THIN MALE ADMITTED WITH SIGNIFICANT IT FOR IMBALANCE UNCLEAR CAUSE TODAY DENIES ANY NAUSEA OR VOMITING NO DIARRHEA HE ALSO DENIES USING DIURETICS OUTPATIENT Exam Vital Signs (past 8 hours): - 08/05/21 15:00 08/05/21 19:57 Temperature 96.6 F L 97.9 F Pulse Rate 52 L 51 L Respiratory Rate 18 18 Blood Pressure 94/65 94/59 L Pulse Oximetry 100 97 Oxygen Delivery Method Room Air Oxygen Flow Rate 0 Narrative Exam Narrative: NO ACUTE DISTRESS. PATIENT IS ALERT ORIENTED X3. THIN VITAL SIGNS STABLE HEAD ATRAUMATIC NORMOCEPHALIC NECK : SUPPLE WITHOUT ADENOPATHY NO CAROTID BRUITS EYE: EOMI, PERRLA, NORMAL CONJUNCTIVA; NO JAUNDICE CHEST: REGULAR RATE. NO RUBS. PMI IS NON DISPLACED. NO MURMURS; NORMAL S1-S2 PULMONARY: DECREASED BS OVER THE BASES. MILD BIBASILAR CRACKLES NOTED; NO INCREASED DULLNESS TO PERCUSSION ABDOMEN: SOFT. NONTENDER. NONDISTENDED. BOWEL SOUNDS ARE PRESENT IN ALL 4 QUADRANTS. NO MASS. EXTREMITIES: NO EDEMA.. NO CYANOSIS CLUBBING NOTED. NEURO: CRANIAL NERVES 2-12 GROSSLY INTACT. NO FOCAL NEUROLOGICAL DEFICIT NOTED. MSK: NORMAL RANGE OF MOTION FOR AGE. NO JOINT EFFUSION. POOR MUSCULATURE SKIN: NORMAL FOR ETHNICITY; NO ECCHYMOSIS. NO LESION. GOOD TURGOR.; NO RASHES : NORMAL EXTERNAL GENITALIA. PSYCH : APPROPRIATE MOOD AND AFFECT. ALERT AWAKE ORIENTED X3 Objective Labs Result Diagrams: 08/05/21 10:45 08/05/21 18:22 Labs: Laboratory Results - last 24 hr 08/04/21 08/04/21 08/04/21 20:10 22:50 22:50 WBC 3.2 L RBC 3.44 L Hgb 11.9 L Hct 32.3 L MCV 93.9 MCH 34.4 H MCHC 36.7 H RDW 12.9 Plt Count 166 Neut % (Auto) 45.8 L Lymph % (Auto) 41.2 H Calvert % (Auto) 10.7 Eos % (Auto) 0.9 L Baso % (Auto) 1.4 Neut # (Auto) 1400 L Lymph # (Auto) 1300 [place] # (Auto) 300 Eos # (Auto) Baso # (Auto) Not Reportable RBC Morphology See below Anisocytosis 1+ H Sodium Potassium Chloride Carbon Dioxide BUN Creatinine Estimated GFR BUN/Creatinine Ratio Glucose Calcium Magnesium 2.4 H Urine Color Urine Appearance Urine pH Ur Specific Rosebud Urine Protein Urine Glucose (UA) Urine Ketones Urine Occult Blood Urine Nitrate Urine Bilirubin Urine Urobilinogen Ur Leukocyte Esterase Urine RBC Urine WBC Ur Squamous Epith Cells Urine Bacteria Ur Culture Indicated? Ur Random Sodium U Opiates 300ng/mL cut Ur Oxycodone Screen Urine Methadone Screen Ur Barbiturates Screen U Tricyclic Antidepress Ur Phencyclidine Scrn Ur Amphetamines Screen U Methamphetamines Scrn Ur MDMA Scrn (Ecstasy) U Benzodiazepines Scrn Urine Cocaine Screen U Marijuana (THC) Screen SARS-CoV-2 (PCR) Negative 08/04/21 08/05/21 08/05/21 22:50 02:10 02:10 WBC 3.0 L RBC 3.67 L Hgb 12.5 L Hct 34.1 L MCV 93.1 MCH 34.2 H MCHC 36.7 H RDW 13.0 Plt Count 184 Neut % (Auto) 44.8 L Lymph % (Auto) 43.2 H Calvert % (Auto) 10.9 Eos % (Auto) 0.8 L Baso % (Auto) 0.3 Neut # (Auto) 1300 L Lymph # (Auto) 1300 [place] # (Auto) 300 Eos # (Auto) 0 Baso # (Auto) 0 RBC Morphology See below Anisocytosis 1+ H Sodium 133 L Potassium 2.5 L* Chloride 74 L* Carbon Dioxide 51 H* BUN 20 Creatinine 0.67 Estimated GFR > 60 BUN/Creatinine Ratio 29.9 H Glucose 101 H Calcium 8.5 Magnesium 2.5 H Urine Color Urine Appearance Urine pH Ur Specific Rose[place] Urine Protein Urine Glucose (UA) Urine Ketones Urine Occult Blood Urine Nitrate Urine Bilirubin Urine Urobilinogen Ur Leukocyte Esterase Urine RBC Urine WBC Ur Squamous Epith Cells Urine Bacteria Ur Culture Indicated? Ur Random Sodium U Opiates 300ng/mL cut Ur Oxycodone Screen Urine Methadone Screen Ur Barbiturates Screen U Tricyclic Antidepress Ur Phencyclidine Scrn Ur Amphetamines Screen U Methamphetamines Scrn Ur MDMA Scrn (Ecstasy) U Benzodiazepines Scrn Urine Cocaine Screen U Marijuana (THC) Screen SARS-CoV-2 (PCR) 08/05/21 08/05/21 08/05/21 02:10 03:15 03:15 WBC RBC Hgb Hct MCV MCH MCHC RDW Plt Count Neut % (Auto) Lymph % (Auto) Calvert % (Auto) Eos % (Auto) Baso % (Auto) Neut # (Auto) Lymph # (Auto) Calvert # (Auto) Eos # (Auto) Baso # (Auto) RBC Morphology Anisocytosis Sodium 132 L Potassium 2.1 L* Chloride 76 L* Carbon Dioxide 51 H* BUN 19 Creatinine 0.63 L Estimated GFR > 60 BUN/Creatinine Ratio 30.2 H Glucose 88 Calcium 8.4 Magnesium Urine Color Yellow Urine Appearance Clear Urine pH 7.5 Ur Specific Rosebud <=1.005 Urine Protein Negative Urine Glucose (UA) Negative Urine Ketones Negative Urine Occult Blood 1+ H Urine Nitrate Negative Urine Bilirubin Negative Urine Urobilinogen 1.0 Ur Leukocyte Esterase Negative Urine RBC 5-10/hpf H Urine WBC 0-1/hpf Ur Squamous Epith Cells 0-1 /hpf Urine Bacteria Occasional (0-1) Ur Culture Indicated? Cult not indicated Ur Random Sodium 14 L U Opiates 300ng/mL cut Ur Oxycodone Screen Urine Methadone Screen Ur Barbiturates Screen U Tricyclic Antidepress Ur Phencyclidine Scrn Ur Amphetamines Screen U Methamphetamines Scrn Ur MDMA Scrn (Ecstasy) U Benzodiazepines Scrn Urine Cocaine Screen U Marijuana (THC) Screen SARS-CoV-2 (PCR) 08/05/21 08/05/21 08/05/21 03:15 06:10 06:10 WBC 3.0 L RBC 3.20 L Hgb 11.1 L Hct 29.9 L MCV 93.2 MCH 34.6 H MCHC 37.1 H RDW 13.0 Plt Count 154 Neut % (Auto) 39.6 L Lymph % (Auto) 45.1 H Calvert % (Auto) 11.8 Eos % (Auto) 1.7 L Baso % (Auto) 1.8 Neut # (Auto) 1200 L Lymph # (Auto) 1400 [place] # (Auto) 400 Eos # (Auto) 100 Baso # (Auto) 100 RBC Morphology See below Anisocytosis 1+ H Sodium Potassium Chloride Carbon Dioxide BUN Creatinine Estimated GFR BUN/Creatinine Ratio Glucose Calcium Magnesium 2.2 Urine Color Urine Appearance Urine pH Ur Specific [place] Urine Protein Urine Glucose (UA) Urine Ketones Urine Occult Blood Urine Nitrate Urine Bilirubin Urine Urobilinogen Ur Leukocyte Esterase Urine RBC Urine WBC Ur Squamous Epith Cells Urine Bacteria Ur Culture Indicated? Ur Random Sodium U Opiates 300ng/mL cut Negative Ur Oxycodone Screen Negative Urine Methadone Screen Negative Ur Barbiturates Screen Negative U Tricyclic Antidepress Negative Ur Phencyclidine Scrn Negative Ur Amphetamines Screen Negative U Methamphetamines Scrn Negative Ur MDMA Scrn (Ecstasy) Negative U Benzodiazepines Scrn Negative Urine Cocaine Screen Negative U Marijuana (THC) Screen Negative SARS-CoV-2 (PCR) 08/05/21 08/05/21 08/05/21 06:10 10:45 10:45 WBC 2.8 L RBC 3.15 L Hgb 11.0 L Hct 29.2 L MCV 92.6 MCH 34.9 H MCHC 37.7 H RDW 12.7 Plt Count 146 L Neut % (Auto) 45.4 L Lymph % (Auto) 39.7 Calvert % (Auto) 10.1 Eos % (Auto) 1.7 L Baso % (Auto) 3.1 H Neut # (Auto) 1300 L Lymph # (Auto) 1100 [place] # (Auto) 300 Eos # (Auto) 0 Baso # (Auto) 100 RBC Morphology See below Anisocytosis 1+ H Sodium 131 L Potassium 2.6 L* Chloride 79 L Carbon Dioxide 45 H* BUN 20 Creatinine 0.57 L Estimated GFR > 60 BUN/Creatinine Ratio 35.1 H Glucose 106 H Calcium 7.7 L Magnesium 2.1 Urine Color Urine Appearance Urine pH Ur Specific [place] Urine Protein Urine Glucose (UA) Urine Ketones Urine Occult Blood Urine Nitrate Urine Bilirubin Urine Urobilinogen Ur Leukocyte Esterase Urine RBC Urine WBC Ur Squamous Epith Cells Urine Bacteria Ur Culture Indicated? Ur Random Sodium U Opiates 300ng/mL cut Ur Oxycodone Screen Urine Methadone Screen Ur Barbiturates Screen U Tricyclic Antidepress Ur Phencyclidine Scrn Ur Amphetamines Screen U Methamphetamines Scrn Ur MDMA Scrn (Ecstasy) U Benzodiazepines Scrn Urine Cocaine Screen U Marijuana (THC) Screen SARS-CoV-2 (PCR) 08/05/21 08/05/21 10:45 18:22 WBC RBC Hgb Hct MCV MCH MCHC RDW Plt Count Neut % (Auto) Lymph % (Auto) Calvert % (Auto) Eos % (Auto) Baso % (Auto) Neut # (Auto) Lymph # (Auto) [place]vert # (Auto) Eos # (Auto) Baso # (Auto) RBC Morphology Anisocytosis Sodium 129 L 133 L Potassium 2.3 L* 2.5 L* Chloride 82 L 86 L Carbon Dioxide 42 H* 39 H BUN 17 13 Creatinine 0.60 L 0.57 L Estimated GFR > 60 > 60 BUN/Creatinine Ratio 28.3 H 22.8 H Glucose 163 H 91 Calcium 7.7 L 8.0 L Magnesium Urine Color Urine Appearance Urine pH Ur Specific [place] Urine Protein Urine Glucose (UA) Urine Ketones Urine Occult Blood Urine Nitrate Urine Bilirubin Urine Urobilinogen Ur Leukocyte Esterase Urine RBC Urine WBC Ur Squamous Epith Cells Urine Bacteria Ur Culture Indicated? Ur Random Sodium U Opiates 300ng/mL cut Ur Oxycodone Screen Urine Methadone Screen Ur Barbiturates Screen U Tricyclic Antidepress Ur Phencyclidine Scrn Ur Amphetamines Screen U Methamphetamines Scrn Ur MDMA Scrn (Ecstasy) U Benzodiazepines Scrn Urine Cocaine Screen U Marijuana (THC) Screen SARS-CoV-2 (PCR) COUNTS INCLUDE 234 BEDS AT THE [facility] Surgical History History of inguinal hernia repair, bilateral Family History Father Hypertension Mother Autoimmune disorder Social History household members: none Smoking Status: Never smoker alcohol intake: never Assessment & Plan Assessment & Plan narrative: IMPRESSION ELECTROLYTE IMBALANCE POSSIBLE MODERATE TO SEVERE PROTEIN CALORIE DEFICIENCY THROMBOCYTOPENIA SUSPECTED EATING DISORDER PLAN CONTINUE TO REPLACE POTASSIUM AND OTHER ELECTROLYTES INDICATED ORAL AND IV REPLACEMENT STARTED FOLLOW MAGNESIUM LEVEL CLOSELY MONITOR CLOSELY FOR ANY SIGN OF ARRHYTHMIAS LABS ORDERED FOR THE MORNING ADDITIONAL MANAGEMENT PER CLINICAL COURSE DISCHARGE IN 1-2 DAYS IF CLINICALLY STABLE Time Spent With Patient Critical Care time: I spent a total of [] minutes of critical care time on this patient's care today; this time is exclusive of procedural time. Quality VTE Deep Vein Thrombosis/Pulmonary Embolism Present on Admission: No
[2021-08-05 21:18] LABS: BUN Creatinine Ratio 22.6 (6-22); Blood Urea Nitrogen 12 mg/dL (9-20); Calcium 8.1 mg/dL (8.4-10.2); Chloride 87 mmol/L (98-107); Estimated Glomerular Filt Rate > 60 mL/min (>60); Glucose 88 mg/dL (70-100); HEMOLYSIS < 15 (0-50); Sodium 132 mmol/L (137-145)
[2021-08-05 21:25] LABS: Carbon Dioxide 38 mmol/L (22-32)
[2021-08-06] MEDS: POTASSIUM CHLORIDE 20 MEQ TAB 40 MEQ PO ×2 (00:02→14:18)
[2021-08-06 00:26] VITALS: O2SAT 97
[2021-08-06 06:10] VITALS: BP 90/57; PULSE 49; RESP 18; TEMP 36.2; O2SAT 100
--- NOTE | 2021-08-06 06:18 | PC.NURSE ---
ASSISTANT PROFESSOR IN FAMILY STUDIES note: while attempting to document that patient washed his face, accidentally clicked the advanced directives documentation bit. [facility]. Entered this in by error. Patient just washed his face. Attempted to undo with help of RN and JERRY, we could not figure out how to undo this bit of documentation.
[2021-08-06 07:00] VITALS: O2SAT 99
[2021-08-06 07:08] LABS: Alanine Aminotransferase 30 IU/L (<50); Albumin 3.2 g/dL (3.5-5.0); Albumin Globulin Ratio 1.4 (1.0-2.8); Alkaline Phosphatase 45 U/L (38-126); Aspartate Aminotransferase 43 IU/L (17-59); BUN Creatinine Ratio 19.3 (6-22); Bilirubin Total 0.3 mg/dL (0.2-1.3); Blood Urea Nitrogen 11 mg/dL (9-20); Calcium 7.7 mg/dL (8.4-10.2); Carbon Dioxide 37 mmol/L (22-32); Chloride 96 mmol/L (98-107); Estimated Glomerular Filt Rate > 60 mL/min (>60); Globulin 2.3 g/dL (1.7-4.1); Glucose 83 mg/dL (70-100); HEMOLYSIS < 15 (0-50); Magnesium 2.3 mg/dL (1.6-2.3); Phosphorous 2.1 mg/dL (2.5-4.5); Potassium 3.2 mmol/L (3.4-5.1); Sodium 134 mmol/L (137-145); Total Protein 5.5 g/dL (6.3-8.2)
[2021-08-06 08:03] VITALS: O2SAT 98
[2021-08-06] MEDS: MAGNESIUM OXIDE 400 MG TABLET PO (09:12)
[2021-08-06] MEDS: SODIUM,POTASSIUM PHOSPHATES PACKET 2 EACH PO ×2 (10:09→14:14)
--- NOTE | 2021-08-06 10:51 | P.DS_ITS ---
History of Present Illness History of Present Illness Date Patient Seen: 08/06/21 Chief complaint: low potassium, sent by [facility] PCP Narrative: History of Present Illness History of Present Illness Date Patient Seen: 08/04/21 Time Patient Seen: 22:00 Chief complaint: low potassium, sent by [facility] PCP Narrative: Pedro Mora is 36-year-old no with no medical history and currently not taking any medications presented at the request of his PCP at the [facility] due to a low potassium 1.8.? He otherwise feels fine and was surprised that he needed to be admitted.? He states he has been working with a public records researcher to help him gain weight.? His whole family is thin.? Patient states he is very picky about foods and does take a ?ghost? protein shake.? He also takes a multivitamin.? He states that his work is quite busy any generally only eats 1 meal a day.? 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 Denies fever, sweats or chills, chest pain, nausea vomiting, abdominal pain, dysuria, diarrhea constipation, paresthesias of the upper lower extremities. Per the emergency room provider his potassium at the [facility] was 1.7 and upon presentation to this facility it was 1.8.? He was initiated on 40 mEq use of pot assium IV and p.o. totaling 80 mEq use.? Patient is afebrile, blood pressure 106/49, heart rate of 59, respiratory rate 16, oxygen saturation of 100% on room air he weighs 54.4 kg, calculated BMI is 18.2.? Is mildly anemic with a hemoglobin and hematocrit of 13 and 35.1, sodium was 129 potassium 1.8 chloride 66 bicarb 57 creatinine 0.79 BUN 28 EGFR is within normal limits glucose 87 calcium within normal limits, and liver enzymes within normal limits, COVID-19 PCR is negative. Discharge Providers Provider Date of admission: 08/04/21 20:54 Discharge Date: 08/06/21 Consults: 08/05/21 10:33 Consult to Dietitian, Adult Routine Comment: Reason For Exam: Evaluate and treat Discharge provider: Gideon Gold DO Summary Hospital Course Discharge Diagnosis: ELECTROLYTE IMBALANCE; RESOLVED MODERATE TO SEVERE PROTEIN CALORIE DEFICIENCY MONITOR MALNUTRITION; OUTPATIENT MANAGEMENT PANCYTOPENIA.; ? CAUSE . COULD BE RELATED TO VITAMIN DEFICIENCY; R/O OTHER PER OUTPATIENT PROVIDERS SUSPECTED EATING DISORDER; ASSESS OUTPATIENT Hospital Course: THIS IS A 36-YEAR-OLD MALE ADMITTED TO THE HOSPITAL WITH SIGNIFICANT ELECTROLYTE IMBALANCE. CAUSE IS UNCLEAR. THERE WAS NO REPORTED SEVERE DIARRHEA OR RECURRENT NAUSEA OR VOMITING. PATIENT REPORTED STRENUOUS ACTIVITIES AND POSSIBLY CHANGE IN FEEDING HABITS IN ANY CASE AT THIS TIME HIS ELECTROLYTES HAS BEEN REPLACED THE GREATLY. HE WILL BE DISCHARGED ON VITAMIN SUPPLEMENT PATIENT WILL NEED TO BE ASSESSED FOR ORDER UNDERLYING CONDITION WHICH COULD BE THE CAUSE OF HIS LOW WEIGHT / PROTEIN CALORIE DEFICIENCY MALNUTRITION. WILL DEFER TO PCP TO DO SO IF INDICATED. ACTIVITIES TOLERATED HIGH-PROTEIN HIGH-CALORIE DIET RECOMMENDED FOLLOW-UP WITH PRIMARY CARE PHYSICIAN WITHIN 1-2 WEEKS . MAY FOLLOW UP EARLIER IF NEEDED Status at Discharge Cognitive/behavioral status at discharge: oriented Functional status at discharge: independent ambulation Overall status at discharge: patient is back to baseline Time Spent with Patient Time spent: Greater than 30 minutes Exam Vital Signs (past 8 hours): - 08/06/21 06:10 08/06/21 08:03 Temperature 97.1 F L Pulse Rate 49 L Respiratory Rate 18 Blood Pressure 90/57 L Pulse Oximetry 100 98 Oxygen Delivery Method Room Air Oxygen Flow Rate 0 Narrative Exam Narrative: NO ACUTE DISTRESS.? PATIENT IS ALERT ORIENTED X3. THIN VITAL SIGNS STABLE HEAD ATRAUMATIC NORMOCEPHALIC NECK : SUPPLE WITHOUT ADENOPATHY NO CAROTID BRUITS EYE:? EOMI, PERRLA, NORMAL CONJUNCTIVA; NO JAUNDICE CHEST:? REGULAR RATE.? ? NO RUBS.? PMI IS NON DISPLACED.? NO MURMURS; NORMAL S1- S2 PULMONARY:? DECREASED BS OVER THE BASES.? MILD BIBASILAR CRACKLES NOTED; NO INCREASED DULLNESS TO PERCUSSION ABDOMEN:? SOFT.? NONTENDER.? NONDISTENDED.? BOWEL SOUNDS ARE PRESENT IN ALL 4 QUADRANTS.? NO MASS. EXTREMITIES: NO EDEMA..? NO CYANOSIS CLUBBING NOTED. NEURO:? CRANIAL NERVES 2-12 GROSSLY INTACT. NO FOCAL NEUROLOGICAL DEFICIT NOTED. MSK:? NORMAL RANGE OF MOTION FOR AGE.? NO JOINT EFFUSION.? POOR MUSCULATURE SKIN:? NORMAL FOR ETHNICITY; NO ECCHYMOSIS.? NO LESION. ? GOOD? TURGOR.; NO RASHES :? NORMAL EXTERNAL GENITALIA. PSYCH :? APPROPRIATE MOOD AND AFFECT.? ALERT AWAKE ORIENTED X3 Objective Labs Result Diagrams: 08/05/21 10:45 08/06/21 06:18 Labs: Laboratory Results - last 24 hr 08/05/21 08/05/21 08/05/21 10:45 10:45 10:45 WBC 2.8 L RBC 3.15 L Hgb 11.0 L Hct 29.2 L MCV 92.6 MCH 34.9 H MCHC 37.7 H RDW 12.7 Plt Count 146 L Neut % (Auto) 45.4 L Lymph % (Auto) 39.7 Dillon % (Auto) 10.1 Eos % (Auto) 1.7 L Baso % (Auto) 3.1 H Neut # (Auto) 1300 L Lymph # (Auto) 1100 Dillon # (Auto) 300 Eos # (Auto) 0 Baso # (Auto) 100 RBC Morphology See below Anisocytosis 1+ H Sodium 129 L Potassium 2.3 L* Chloride 82 L Carbon Dioxide 42 H* BUN 17 Creatinine 0.60 L Estimated GFR > 60 BUN/Creatinine Ratio 28.3 H Glucose 163 H Calcium 7.7 L Phosphorus Magnesium 2.1 Total Bilirubin AST ALT Alkaline Phosphatase Total Protein Albumin Globulin Albumin/Globulin Ratio 08/05/21 08/05/21 08/05/21 18:22 18:22 20:50 WBC RBC Hgb Hct MCV MCH MCHC RDW Plt Count Neut % (Auto) Lymph % (Auto) Dillon % (Auto) Eos % (Auto) Baso % (Auto) Neut # (Auto) Lymph # (Auto) Dillon # (Auto) Eos # (Auto) Baso # (Auto) RBC Morphology Anisocytosis Sodium 133 L 132 L Potassium 2.5 L* 3.0 L Chloride 86 L 87 L Carbon Dioxide 39 H 38 H BUN 13 12 Creatinine 0.57 L 0.53 L Estimated GFR > 60 > 60 BUN/Creatinine Ratio 22.8 H 22.6 H Glucose 91 88 Calcium 8.0 L 8.1 L Phosphorus Magnesium 2.3 Total Bilirubin AST ALT Alkaline Phosphatase Total Protein Albumin Globulin Albumin/Globulin Ratio 08/06/21 06:18 WBC RBC Hgb Hct MCV MCH MCHC RDW Plt Count Neut % (Auto) Lymph % (Auto) Dillon % (Auto) Eos % (Auto) Baso % (Auto) Neut # (Auto) Lymph # (Auto) Dillon # (Auto) Eos # (Auto) Baso # (Auto) RBC Morphology Anisocytosis Sodium 134 L Potassium 3.2 L Chloride 96 L Carbon Dioxide 37 H BUN 11 Creatinine 0.57 L Estimated GFR > 60 BUN/Creatinine Ratio 19.3 Glucose 83 Calcium 7.7 L Phosphorus 2.1 L Magnesium 2.3 Total Bilirubin 0.3 AST 43 ALT 30 Alkaline Phosphatase 45 Total Protein 5.5 L Albumin 3.2 L Globulin 2.3 Albumin/Globulin Ratio 1.4 PFSH Surgical History History of inguinal hernia repair, bilateral Family History Father Hypertension Mother Autoimmune disorder Social History household members: none Smoking Status: Never smoker alcohol intake: never Discharge Plan Discharge Plan Patient Disposition: Home Discharge orders & Medications Prescriptions: New potassium chloride 10 mEq tablet extended release 10 meq PO BID Qty: 30 0RF magnesium 200 mg tablet 200 mg PO DAILY Qty: 30 0RF multivitamin with iron-mineral Tablet 1 tab PO DAILY Qty: 30 0RF Nephro-Kirstin Rx 1-60-300 mg-mg-mcg tablet 1 tab PO DAILY Qty: 30 0RF Diet/Activity/Treatments Diet: Regular Diet comment: HIGH PROTEIN Activity: ACTIVITY Quality VTE Deep Vein Thrombosis/Pulmonary Embolism Present on Admission: No
[2021-08-06 13:20] VITALS: BP 93/58; PULSE 65; RESP 18; TEMP 37; O2SAT 100
--- NOTE | 2021-08-06 14:32 | PC.NURSE ---
Pt condition remains essentially unchanged Pt to receive 2 doses of KCl as per orders the discharge. HL D/C intact w/o incidence. D/C instructions and paper RX given to pt w/understanding Pt escorted by staff to his vehicle in stable condition.
[2021-08-06 16:37] LABS: Osmolality Urine 421 mOsmol/kg (.)
== END 2021-08-06 14:25 | disposition home or self-care (01) | DRG 641 ==
LOC: ED 20:38 → AC 20:54
PROVIDERS: Emergency Medicine; Hospitalist; Admitting Provider Nurse Practitioner Family; Emergency Provider Emergency Medicine; Referring Provider Nurse Practitioner Family; Visit Provider Nurse Practitioner Family
DX: E87.1 Hypo-osmolality and hyponatremia (principal); D61.818 Other pancytopenia; E44.0 Moderate protein-calorie malnutrition; Z68.1 Body mass index [BMI] 19.9 or less, adult; E87.6 Hypokalemia; F50.9 Eating disorder, unspecified; Z20.822 Contact with and (suspected) exposure to COVID-19
CPT/HCPCS: 36415; 36592; 80048; 80053; 80305; 81001; 83735; 83935; 84100; 84300; 85025; 87635; 93005; 94760; 96365; 96366; 99284; C9803; J0610; J1650